=== PATIENT | male | born 2000 | race Caucasian/White ===

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

== ENCOUNTER → 2019-08-25 | Outpatient (CLI) | payer BC ==
--- NOTE | 2019-08-25 15:15 | Diagnostic Imaging Report ---
PROCEDURE: US left lower extremity venous. TECHNIQUE: Multiple real-time grayscale images were obtained over the left lower extremity in various projections. Additional duplex Doppler and color Doppler images were also obtained. INDICATION: Left leg pain. FINDINGS: There is no evidence of left lower extremity DVT. Left lower extremity deep venous system shows normal compressibility with normal response to augmentation and Valsalva. No fluid collection or mass is seen. IMPRESSION: No evidence of left lower extremity DVT. Dictated by: Dictated on workstation # [id number]
[2019-08-25 15:31] LABS: FIBRIN DEGRADATION PRODUCTS 0.32 UG/ML (0.00-0.49)
== END ==
LOC: RAD 14:26
PROVIDERS: ATTEND Pediatrics
DX: M79.605 Pain in left leg (principal)
CPT/HCPCS: 36415; 85379; 85610; 85730

== ENCOUNTER → 2020-04-26 | Outpatient (CLI) | payer BC ==
[~2020-04-26] MED LIST changes: +HOLD METFORMIN - RECEIVED CONTRAST 20 ML VIAL IV SCH; +IOHEXOL 350 MG/ML 100 ML (OMNIPAQUE 350) VIAL IV ONE; -LACTATED RINGERS 1,000 ML IV ONE; +NS 100 ML (IVPB) BAG IV ONE
--- NOTE | 2020-04-26 09:32 | Diagnostic Imaging Report ---
PROCEDURE: CT neck soft tissue with contrast. TECHNIQUE: Multiple contiguous axial images were obtained through the neck after the administration of contrast. Auto Exposure Controls were utilized during the CT exam to meet ALARA standards for radiation dose reduction. INDICATION: Left neck swelling. FINDINGS: There is a BB placed over the left submandibular region in the area of fullness. There is a subcutaneous lymph node just lateral to the carotid arteries and posterior to the angle of mandible measuring 11 x 8 mm. No other cervical chain lymph nodes are identified in the region. The strap muscles appear normal. The carotid arteries and jugular vein are well-opacified with contrast and appear normal. The parotid glands are symmetrical and appear normal. The submandibular glands are not enlarged. The parapharyngeal tissue planes are normal. Nasopharynx and oropharynx are normal. Epiglottis is normal. Larynx is normal. No blastic or lytic bony changes. IMPRESSION: Single lymph node measuring 11 x 8 mm correlates with the palpable area. Lymph node is just superficial to the carotid arteries in between the sternocleidomastoid and angle of the mandible in the subcutaneous tissues. Dictated by: Dictated on workstation # [id number]
== END ==
LOC: RAD 07:39
PROVIDERS: ATTEND Otolaryngology Otolaryngology/Facial Plastic Surgery
DX: R59.0 Localized enlarged lymph nodes (principal)
CPT/HCPCS: 70491

== ENCOUNTER 2020-08-29 15:52 | Emergency (ER) | payer BC ==
[~2020-08-29] VITALS: Ht 190 cm; Wt 77.0 kg
[2020-08-29] MEDS ORDERED: fentaNYL INJECTION 100 MCG/2 ML AMP ONE (15:54)
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
[2020-08-29] MEDS ORDERED: fentaNYL INJECTION 100 MCG/2 ML AMP IVP STA (15:58)
[2020-08-29] MEDS ORDERED: TETANUS,DIPTH,PERTUSS P/F (BOOSTRIX) 0.5 ML VIAL IM ONE (16:30)
[2020-08-29] MEDS ORDERED: ACHD5005 PO (16:33)
--- NOTE | 2020-08-29 16:42 | NUR ---
SPOKE ON PHONE W [facility] AND APPT IN [place] [facility]
[2020-08-29 16:53] VITALS: BP 135/77
== END 2020-08-29 16:53 | disposition home or self-care (01) ==
LOC: EDUNIT# 15:52 → ER 15:54
DX: T23.371A Burn of third degree of right wrist, initial encounter (principal); T23.341A Burn of third degree of multiple right fingers (nail), including thumb, initial encounter; Z23 Encounter for immunization; X08.8XXA Exposure to other specified smoke, fire and flames, initial encounter
CPT/HCPCS: 90715